=== PATIENT | male | born 2000 | race Two or more races ===

== ENCOUNTER 2025-09-08 13:47 | Emergency (ER) | payer BC, SELFPAY ==
[2025-09-08 15:04] VITALS: BP 175/113; BP 195/114; PULSE 89; RESP 20; TEMP 36.8; O2SAT 98; BMI 38.0
[2025-09-08] MEDS: IBUPROFEN TAB 400 MG TABLET 600 MG PO (15:40)
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
== END 2025-09-08 16:06 | disposition home or self-care (01) ==
LOC: SERX 15:58
PROVIDERS: Emergency Provider Emergency Medicine
DX: S00.03XA Contusion of scalp, initial encounter (principal); V43.52XA Car driver injured in collision with other type car in traffic accident, initial encounter; Y92.413 State road as the place of occurrence of the external cause
CPT/HCPCS: 99281; A9270